=== PATIENT | male | born 1965 | race Caucasian/White ===

== ENCOUNTER 2018-01-03 03:14 | Emergency (ER) | payer OTHER ==
[~2018-01-03] VITALS: Ht 182.9 cm; Wt 88.5 kg
[~2018-01-03 03:14] MED LIST: ATORVASTATIN CA20 MG PO; CYCLOBENZAPRINE10 M1 PO; HYDROCODONE/ACE1 TA1 PO; IBUPROFEN800 M1 PO; INDOCIN25 MG PO; INDOMETHACIN50 MG PO; MOBIC 15MG15 MG PO; PERCOCET 325 MG1 TA2 PO; PREDNISONE 20MG20 MG PO; TRAMADOL50 MG PO
--- NOTE | 2018-01-03 03:53 | ED GI/GU/ABDOMINAL COMPLAINT ---
History of Present Illness General Chief Complaint: Abdominal Pain/Flank Pain Stated Complaint: ABD PAIN THAT RADIATES TO BACK Source: patient, family, old records Exam Limitations: no limitations Vital Signs & Intake/Output Vital Signs & Intake/Output Vital Signs Date Time Temp Pulse Resp B/P B/P Pulse O2 O2 Flow FiO2 Mean Ox Delivery Rate 01/03 0524 97.9 68 18 170/96 97 Room Air 01/03 0323 97.8 54 18 173/92 97 Room Air Allergies Coded Allergies: NO KNOWN ALLERGIES (01/07/12) Reconcile Medications Atorvastatin Calcium (Lipitor) 20 MG TABLET 1 TAB PO DAILY CHOLESTEROL ( Reported) Cyclobenzaprine HCl 10 MG TABLET 1 TAB PO TID PRN muscle spasm Ibuprofen 800 MG TABLET 1 TAB PO TID PRN pain Indomethacin 50 MG CAPSULE 1 CAP PO BID PRN GOUT (Reported) with food Indomethacin (Indocin) 25 MG CAP 1-2 CAP PO Q6-8P PRN gout Meloxicam (Mobic 15MG) 15 MG TAB 1 TAB PO DAILY PRN PAIN/INFLAMMATION OXYCODONE HCL/ACETAMINOPHEN (Percocet 5-325 MG Tablet) 325 MG/5 MG TAB 1-2 TAB PO Q4-6 PRN PRN severe pain Prednisone 20 MG TABLET 1 TAB PO BID gout TRAMADOL HCL (Tramadol) 50 MG TAB 1-2 TAB PO Q6P PRN PAIN Triage Note: PT FROM HOME C/O ABD PAIN IN ALL QUADRANTS RADIATING TO BILATERAL BACK. 10/10 PAIN. PT STATES HE HAD SOME TYPE OF BITE POSSIBLY TICK? PER PT ON THURSDAY ABOVE UMBILICUS. REDNESS NOTED WITH A SCAB. PT STATES HE WENT TO A WALK IN CLINIC, GIVEN PREDNISONE AND ANTIBIOTIC. BITE PROGRESSIVELY BECOMING WORSE, PT GIVEN STRONGER ANTIBIOTIC AND PT STATES NOW PAIN. PTS BP ELEVATED IN TRIAGE 173/92. Triage Nurses Notes Reviewed? yes HPI: Patient presents to the emergency department with worsening abdominal pain that started Thursday morning. The pain is constant and worsening. Currently the pain is 8 out of 10. The pain is squeezing like in nature. The pain radiates around to his back. There is slight nausea but no vomiting. He denies any diarrhea. Patient is on antibiotics after a bug bite as well as prednisone. Past History Travel History Traveled to [place] past 21 day No Medical History Any Pertinent Medical History? see below for history Neurological: NONE EENT: NONE Cardiovascular: hyperlipidemia Respiratory: NONE Gastrointestinal: GERD Hepatic: NONE Renal: NONE Musculoskeletal: gout Psychiatric: NONE Endocrine: diabetes Blood Disorders: NONE Cancer(s): NONE CONSTRUCTION SUPERVISOR/Reproductive: NONE Other Medical Hx: GOUT Tetanus Vaccine: 12/11/12 Surgical History Surgical History: ESOPHOGUS SURGERY FOR GERD. Psychosocial History What is your primary language Par[place]ayan Tobacco Use: Quit >30 days ago ETOH Use: denies use Illicit Drug Use: denies illicit drug use Family History Hx Contributory? No Review of Systems Review of Systems Constitutional: Reports: no symptoms. EENTM: Reports: no symptoms. Respiratory: Reports: no symptoms. Cardiovascular: Reports: no symptoms. GI: Reports: see HPI, abdominal pain, nausea. Genitourinary: Reports: no symptoms. Musculoskeletal: Reports: no symptoms. Skin: Reports: no symptoms. Neurological/Psychological: Reports: no symptoms. Hematologic/Endocrine: Reports: no symptoms. Immunologic/Allergic: Reports: no symptoms. All Other Systems: Reviewed and Negative Physical Exam Physical Exam General Appearance: well developed/nourished, alert, awake, anxious, mild distress Head: atraumatic, normal appearance Eyes: Bilateral: PERRL, EOMI. Ears, Nose, Throat, Mouth: hearing grossly normal, moist mucous membrane Neck: normal inspection, supple, full range of motion Respiratory: normal breath sounds, chest non-tender, no respiratory distress, lungs clear Cardiovascular: regular rate/rhythm, normal peripheral pulses Gastrointestinal: normal bowel sounds, soft, no organomegaly, tenderness ( PERIUMBILICAL) Back: normal inspection, normal range of motion Extremities: normal range of motion Neurologic/Psych: no motor/sensory deficits, awake, alert, oriented x 3, normal gait, normal mood/affect Skin: intact, normal color, warm/dry Core Measures ACS in differential dx? No Sepsis Present: No Sepsis Focused Exam Completed? No Progress Differential Diagnosis: AMI, appendicitis, biliary colic, bowel obstruction, cholecystitis, diverticulitis, gastritis, hepatitis, ischemic bowel, inflamm bowel dis, pancreatitis, peptic ulcer, PUD/GERD Plan of Care: Orders Procedure Date/time Status URINALYSIS 01/03 323 Complete TROPONIN LEVEL 01/03 323 Complete LIPASE 01/03 323 Complete COMPREHENSIVE METABOLIC PANEL 01/03 323 Complete CBC WITHOUT DIFFERENTIAL 01/03 323 Complete AMYLASE 01/03 323 Complete EKG 07/08 0323 Active Current Medications Sig/Karthikeyan Start time Last Medication Dose Stop Time Status Admin Morphine Sulfate 4 MG ONCE ONE 01/03 545 UNVr (Morphine) 01/03 546 Laboratory Tests 01/03/18 0410: Urine Color YEL, Urine Clarity CLEAR, Urine pH 6.0, Ur Specific Jber 1.025, Urine Protein NEG, Urine Ketones NEG, Urine Nitrite NEG, Urine Bilirubin NEG, Urine Urobilinogen 0.2, Ur Leukocyte Esterase NEG, Ur Microscopic SEDIMENT EXAMINED, Urine RBC 1-3, Urine Hemoglobin MOD H, Urine Glucose 500 H 01/03/18 0350: Anion Gap 12, Estimated GFR > 60, BUN/Creatinine Ratio 31.4 H, Glucose 236 H, Calcium 9.2, Total Bilirubin 0.6, AST 30, ALT 52, Alkaline Phosphatase 70, Troponin I < 0.01, Total Protein 6.4, Albumin 3.8, Globulin 2.6, Albumin/ Globulin Ratio 1.5, Amylase 59, Lipase 111, CBC w Diff NO MAN DIFF REQ, RBC 4.68 L, MCV 95.6 H, MCH 33.2 H, MCHC 34.7, RDW 12.1, MPV 7.9, Gran % 66.4, Lymphocytes % 24.8, Monocytes % 7.5, Eosinophils % 0.9, Basophils % 0.4, Absolute Granulocytes 7.1 H, Absolute Lymphocytes 2.6, Absolute Monocytes 0.8 H, Absolute Eosinophils 0.1, Absolute Basophils 0 Diagnostic Imaging: Viewed by Me: CT Scan. Discussed w/RAD: CT Scan. Radiology Impression: PATIENT: TORI MYERS PRESENT AGE: 52 PATIENT ACCOUNT NO: [id number] : 65 LOCATION: [facility] ORDERING PHYSICIAN: Donald Kong MD SERVICE DATE: 01/03/18 EXAM TYPE: CAT - CT ABD & PELVIS W IV CONTRAST EXAMINATION: CT ABDOMEN AND PELVIS WITH CONTRAST CLINICAL INFORMATION: Diffuse abdominal pain COMPARISON: None TECHNIQUE: Multidetector volumetric imaging was performed of the abdomen and pelvis following IV administration of 95 mL of Optiray 320 intravenous contrast. Sagittal and coronal reformatted images were obtained on the technologist's workstation. DLP: 819 mGy-cm FINDINGS: LUNG BASES: Minimal bibasilar atelectasis. The visualized cardiac structures are unremarkable. LIVER, GALLBLADDER, AND BILIARY TREE: The liver is normal in size, shape, and attenuation. No focal hepatic lesion or biliary ductal dilatation is present. The gallbladder is unremarkable with no evidence of radiopaque gallstones, gallbladder wall thickening, or obvious pericholecystic inflammatory changes. PANCREAS: Unremarkable. SPLEEN: Unremarkable. ADRENAL GLANDS: Unremarkable. KIDNEYS AND URETERS: The kidneys are normal in size, shape, and attenuation. There is mild left hydroureteronephrosis. There is a 0.2 cm calculus visualized in the mid ureter at the level of L4-L5. Distal ureter is decompressed. Mild perinephric and periureteral stranding. BLADDER: Unremarkable. GASTROINTESTINAL TRACT: Findings suggestive of prior hiatal hernia repair. The stomach is otherwise unremarkable. The small bowel is normal in caliber. No obstruction. Normal appendix. No colonic wall thickening or inflammatory change. Minimal colonic diverticulosis without diverticulitis. No free air or free fluid. ABDOMINAL WALL: No significant hernia seen. Superficial fat stranding in the region of the umbilicus. LYMPH NODES: Normal. VASCULAR: Unremarkable. PELVIC VISCERA: The prostate and seminal vesicles are unremarkable. OSSEOUS STRUCTURES: No acute or suspicious osseous abnormality. Avascular necrosis of the right femoral head. Degenerative changes at L5-S1 with disc space narrowing and vacuum disc phenomenon. 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 DICTATED BY: Jonas Roque MD DATE/TIME DICTATED:01/03/[address] CONSTRUCTION INSPECTOR: SALVATORE DATE/TIME TRANSCRIBED:01/03/18522 CONFIDENTIAL, DO NOT COPY WITHOUT APPROPRIATE AUTHORIZATION. <Electronically signed in Other Vendor System> SIGNED BY: Jonas Roque MD 01/03/1831 Initial ED EKG: NSR, nonspecific ST T wave chg Comments: Moderate relief after the GI cocktail and IV Toradol. Departure Departure Disposition: HOME OR SELF CARE Condition: Stable Clinical Impression Primary Impression: Kidney stone on left side Referrals: Arturo CLARK,Rosalba FRAIRE,Jessica Marcelino (PCP/Family) Additional Instructions: Drink plenty of fluids Take percocet as needed for pain Percocet is very consipating so take astool softener while on it Percocet is very sedating so do not drive after taking it TakeZofran as needed fornausea Take Flomaxas prescribed Follow up with Return for any concerns Departure Forms: Customer Survey General Discharge Information Prescriptions: Current Visit Scripts Ondansetron (Zofran Odt) 1 TAB SL TID PRN NAUSEA #10 TAB Tamsulosin HCl (Flomax) 1 CAP PO DAILY #14 CAP Oxycodone HCl/Acetaminophen (Percocet 5-325 MG Tablet) 1-2 TAB PO Q6P PRN PAIN #20 TAB
[2018-01-03 03:57] LABS: ABSOLUTE BASOPHIL COUNT 0 /CUMM (0.0-0.2); ABSOLUTE EOSINOPHIL COUNT 0.1 /CUMM (0.0-0.7); ABSOLUTE GRANULOCYTE CT 7.1 /CUMM (1.4-6.5); ABSOLUTE LYMPH COUNT 2.6 /CUMM (1.2-3.4); ABSOLUTE MONOCYTE COUNT 0.8 /CUMM (0.10-0.60); BASOPHIL % 0.4 % (0.0-2.0); EOSINOPHIL % 0.9 % (0-5); GRANULOCYTE % 66.4 % (42.2-75.2); HEMATOCRIT 44.8 % (42-52); MEAN CORPUSCULAR HGB 33.2 PG (27.0-31.0); MEAN CORPUSCULAR HGB CONC 34.7 G/DL (33.0-37.0); MEAN CORPUSCULAR VOLUME 95.6 FL (80.0-94.0); MEAN PLATELET VOLUME 7.9 FL (7.4-10.4); PLATELET COUNT 162 /CUMM (130-400); RBC DISTRIBUTION WIDTH 12.1 % (11.5-14.5); RED BLOOD CELL CT 4.68 /CUMM (4.70-6.10); WHITE BLOOD CELL COUNT 10.6 /CUMM (4.8-10.8)
--- NOTE | 2018-01-03 05:31 | CT SCAN REPORT ---
EXAMINATION: CT ABDOMEN AND PELVIS WITH CONTRAST CLINICAL INFORMATION: Diffuse abdominal pain COMPARISON: None TECHNIQUE: Multidetector volumetric imaging was performed of the abdomen and pelvis following IV administration of 95 mL of Optiray 320 intravenous contrast. Sagittal and coronal reformatted images were obtained on the technologist's workstation. DLP: 819 mGy-cm FINDINGS: LUNG BASES: Minimal bibasilar atelectasis. The visualized cardiac structures are unremarkable. LIVER, GALLBLADDER, AND BILIARY TREE: The liver is normal in size, shape, and attenuation. No focal hepatic lesion or biliary ductal dilatation is present. The gallbladder is unremarkable with no evidence of radiopaque gallstones, gallbladder wall thickening, or obvious pericholecystic inflammatory changes. PANCREAS: Unremarkable. SPLEEN: Unremarkable. ADRENAL GLANDS: Unremarkable. KIDNEYS AND URETERS: The kidneys are normal in size, shape, and attenuation. There is mild left hydroureteronephrosis. There is a 0.2 cm calculus visualized in the mid ureter at the level of L4-L5. Distal ureter is decompressed. Mild perinephric and periureteral stranding. BLADDER: Unremarkable. GASTROINTESTINAL TRACT: Findings suggestive of prior hiatal hernia repair. The stomach is otherwise unremarkable. The small bowel is normal in caliber. No obstruction. Normal appendix. No colonic wall thickening or inflammatory change. Minimal colonic diverticulosis without diverticulitis. No free air or free fluid. ABDOMINAL WALL: No significant hernia seen. Superficial fat stranding in the region of the umbilicus. LYMPH NODES: Normal. VASCULAR: Unremarkable. PELVIC VISCERA: The prostate and seminal vesicles are unremarkable. OSSEOUS STRUCTURES: No acute or suspicious osseous abnormality. Avascular necrosis of the right femoral head. Degenerative changes at L5-S1 with disc space narrowing and vacuum disc phenomenon. 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
[2018-01-03] MEDS ORDERED: ZOFRAN ODT4 M1 SL (05:41)
[2018-01-03] MEDS ORDERED: PERCOCET 5-3251 EACH PO (05:41)
[2018-01-03] MEDS ORDERED: FLOMAX0.4 M1 PO (05:41)
[2018-01-03 06:09] VITALS: BP 157/92
== END 2018-01-03 06:29 ==
LOC: ERH 03:14
PROVIDERS: Emergency Medicine
DX: N20.0 Calculus of kidney (principal); R10.9 Unspecified abdominal pain; R11.0 Nausea
CPT/HCPCS: 74177; 81001; 93005; 93010; 96374; 96375; J1200; J1885; J2405